=== PATIENT | male | born 1965 | race Caucasian/White ===

== ENCOUNTER 2017-01-15 | Emergency (ER) | payer OTHER | END 2017-01-15 19:35 | disposition home or self-care (01) | DX: L03.113 Cellulitis of right upper limb (principal); J06.9 Acute upper respiratory infection, unspecified; K21.9 Gastro-esophageal reflux disease without esophagitis; F17.210 Nicotine dependence, cigarettes, uncomplicated; Z79.899 Other long term (current) drug therapy | CPT/HCPCS: 99282 ==